=== PATIENT | female | born 2000 | race Caucasian/White ===

== ENCOUNTER 2024-08-12 02:37 | Emergency (ER) | payer OTHER, SELFPAY ==
[2024-08-12 02:39] VITALS: BP 127/85
[2024-08-12 03:09] VITALS: BMI 26.6
[2024-08-12] MEDS: DILAUDID 0.5 MG IV ×2 (03:10→03:53)
[2024-08-12] MEDS: ZOFRAN 4 MG IV (03:10)
[2024-08-12] MEDS: NSS 1000 IV (03:11)
--- NOTE | 2024-08-12 03:13 | ED.GENMED ---
History of Present Illness
General
Chief Complaint: Abdominal Pain
Source: patient
Exam Limitations: none
Time Seen by Provider: 08/12/24 02:40
Nursing documentation reviewed up to this point in time: agreed with
History of Present Illness
History of Present Illness:
pt is a 24 y/o F
no sig pmh
lmp last week, normal
here with sudden onset of LLQ pain that woke her from sleep
nausea and urge to urinate but hasn't been able to
some constipation the past few days as well
vaginal area feels like it is burning
no discharge, fever, chills, dysuria
pt has never had ovarian cyst or kidney stone
02/10 pain
dry heaving here, vomited x [address]
tried motrin and heating pad at home without relief
has never seen gyne
Past History
Past History
ED Past Medical History: None
ED Past Surgical History: None
Social History
Tobacco: Non-smoker
Alcohol: None
Drug: None
Review of Systems
Review of Systems
Allergies reviewed?: Yes
All Other Systems: Not applicable
Phy Exam
Physical Exam
Physical Exam:
GENERAL: Alert ,; pale, uncomfortable;
EYE: pupils equal and reactive
NECK: Supple
ENT: o/p clr, mmm.
CARDIAC: Regular rate and rhythm .
LUNGS: Clear breath sounds bilaterally, no acute respiratory distress, no wheezes/rales/rhonchi
ABDOMEN: Soft, without focal tenderness, no r/g, no cvat, normal bowel sounds
: normal ext inspection
normal speculum exam
nontender R ovary
L ovary mildly tender
no cmt
NEUROLOGICAL: Alert and oriented, no focal neuro deficits
SKIN: Warm and dry, skin intact. very pale
MUSCULOSKELETAL: No edema, well perfused. neg tylor's sign
PSYCH: Normal and appropriate interaction.
Course
Orders/Labs/Results
Orders:
Orders
08/12/24 03:01
Bladder Scan- Treatment ONCE
HYDROmorphone [Dilaudid] 0.5 mg IV NOW STA
Ondansetron Injectable [Zofran] 4 mg IV NOW STA
Test Result ONCE
Pelvis & Transvaginal US [US Pelvis W Transvag Combined] Urgent
Comment:
Reason For Exam: L sided pain, eval torsion
08/12/24 03:03
0.9% Sodium Chloride 1000 ml [Nss] 1,000 ml IV BOLUS
08/12/24 03:14
Complete Blood Count/With Diff Urgent
Comprehensive Metabolic Panel Urgent
HCG, Serum Qualitative Screen Urgent
08/12/24 03:51
HYDROmorphone [Dilaudid] 0.5 mg IV NOW STA
08/12/24 03:56
CT Abd/pel Without Iv Or Oral Urgent
Comment:
Reason For Exam: L sided pain, urge to urinate, nausea
Ketorolac [Toradol] 30 mg IV NOW STA
08/12/24 05:31
Tamsulosin [Flomax] 0.4 mg PO NOW STA
08/12/24 05:32
Urinalysis Reflex To Culture Urgent
Date Specimen was Collected: 08/12/24
Time Specimen was Collected: 05:31
Urine Microscopic Reflex Cult Urgent
Urine Culture Urgent
MURPHY Source: U
Specimen Description:
Date Specimen was Collected: 08/12/24
Time Specimen was Collected: 05:31
Abnormal Lab Results
08/12/24 08/12/24
03:14 05:32
Hct 34.5 L %
(37.0-47.0)
MCV 78.9 L fL
(81.0-99.0)
Lymphocytes % 18.6 L %
(20.5-51.1)
Glucose 130 H mg/dl
(70-99)
Urine Ketones 3+ A
(Negative)
Ur Occult Blood Reflex 1+ A
(Negative)
Leukocyte Esterase Rfl 1+ A
(Negative)
Urine RBC 7-10 A /HPF
(0-2)
Urine Bacteria (Reflex) Many A
(Negative)
Urine Albumin (Reflex) 1+ A
(Neg - Trace)
08/12/24 03:14
08/12/24 03:14
Vital Signs
Initial and Last Documented VS:
Initial Vital Signs
Temp Pulse Resp BP Pulse Ox
36.8 C 84 16 127/85 100
08/12/24 02:39 08/12/24 02:39 08/12/24 02:39 08/12/24 02:39 08/12/24 02:39
Last Documented Vital Signs
Temp Pulse Resp BP Pulse Ox
36.8 C 84 16 124/74 97
08/12/24 02:39 08/12/24 02:39 08/12/24 02:39 08/12/24 06:32 08/12/24 06:43
MDM/Problems Addressed
Differential Diagnosis Includes:
kidney stone, ovarian torsion
MDM/Problems Addressed:
24 y/o F abrupt onset LLQ pain tonight with sensation of needing to void and some burning or irriation in her vaginal region
nausea but no vomiting
pt extremely pale
flat affect
normotensive
nontender abdomen
? L pelvic tenderness
no cva tendneress
staying very still but not tender
made me think torsion more than stone
started with US which documented flow to the ovary, and sent for CT
ct shows 3 mm distal stone
Pain was controlled with IV pain medication and she remained pain-free
Given Flomax. UA appreciated with leuks, blood, many bacteria but also contaminated, doubt the patient has an infection but given the mild discomfort she had with urination I will cover her with cefdinir. Patient was feeling well on discharge.
Strainer given. Return precautions, urology follow-up
*Critical Care Note
Total Time (30-74mins, 75-104mins- exclusive of procedures): Not Applicable
ED Attending Note
-
Portions of this chart may have been created with voice recognition software.� Occasional wrong word or��sound alike� substitutions may have occurred due to the inherent limitations of voice recognition software.
Discharge Plan
Departure
Patient Disposition: Home (Routine Discharge)
Date of Disposition: 08/12/24
Time of Disposition: 06:34
Patient with high blood pressure during this ER visit?: No
Condition: Fair
Covid-19: Not Applicable
Discharge Problem:
Kidney stone
Instructions: Kidney Stones (DC)
Prescriptions:
New
tamsulosin [Flomax] 0.4 mg capsule
0.4 mg PO DAILY Qty: 10 0RF
ondansetron 4 mg tablet,disintegrating
4 mg PO TIDPRN PRN (Reason: nausea/vomiting) Qty: 6 0RF
oxycodone 5 mg tablet
5 mg PO Q8H PRN (Reason: Pain) Qty: 5 0RF
cefdinir 300 mg capsule
300 mg PO BID Qty: 10 0RF
Referrals:
Stacy Bonds DO [Family Provider] - Follow up in 2-3 days
Melecio Rosenberg MD [Active] - Follow up in 1 week (urology)
Activity Restrictions/Additional Instructions:
YOU HAVE A KIDNEY STONE 3 MM IN THE URETER JUST NEXT TO YOUR BLADDER.
TAKE FLOMAX 0.4 MG ONCE A DAY UNTIL YOU PASS THE STONE
URINATE THROUGH THE STRAINER EACH TIME YOU PEE
TAKE TYLENOL 2 EXTRA STRENGTH TABS 3 TIMES A DAY FOR PAIN
YOU CAN ALSO TRY MOTRIN 600 MG EVERY 8 HOURS WITH FOOD 2-3 TIMES A DAY NEEDED
IF PAIN IS SEVERE YOU CAN TRY OXYCODONE 5 MG EVERY 6 HOURS NEEDED, THIS IS A NARCOTIC AND YOU CANNOT DRIVE OR DRINK ON THIS MEDICATION.
ZOFRAN EVERY 8 HOURS NEEDED FOR NAUSEA/VOMITING
RETURN FOR: SEVERE PAIN, VOMITING, FEVER, NOT URINATING OR ANY CONCERNS.
OTHERWISE FOLLOW UP WITH YOUR UROLOGIST
Interventions
Interventions:
*Risk Screen - Suicide Last Done: 08/12/24 02:39
*General Assessment Last Done: 08/12/24 03:09
*Neglect/Abuse Screening Last Done: 08/12/24 03:09
*ED- Fall Risk Assessment Last Done: 08/12/24 03:09
*ED COVID-19 Vaccine History Last Done: 08/12/24 03:09
*Nursing Disposition Last Done: 08/12/24 06:43
[facility]-Wvzaoo-Dhyxrupdba Assessment Last Done: 08/12/24 03:09
Discharge Date and Time
Print Language: MACEDONIAN
[2024-08-12 03:17] VITALS: BP 115/78
[2024-08-12 03:28] LABS: % Basophils 0.5 % (0-2); % Eosinophils 0.4 % (0-6); % Immature Granulocytes 0.2 % (0-0.5); % Lymphocytes 18.6 % (20.5-51.1); % Monocytes 5.5 % (1.7-9.3); % Neutrophils 74.8 % (42.2-75.2); Absolute Lymphocytes 1.6 10^3/uL (1.2-3.4); Absolute Monocytes 0.5 10^3/uL (0.1-0.6); Absolute Neutrophils 6.3 10^3/uL (1.4-6.5); Hematocrit 34.5 % (37.0-47.0); Mean Corp Hgb Conc. 34.8 g/dL (33.0-37.0); Mean Corpuscular Hgb 27.5 pg (27.0-31.0); Mean Corpuscular Volume 78.9 fL (81.0-99.0); Mean Platelet Volume 9.5 fL (7.4-10.4); Nucleated Red Blood Cells % 0 %; Platelet Count 217 10^3/uL (130-400); Red Blood Cell Count 4.37 10^6/uL (4.20-5.40); Red Cell Dist. Width 12.9 % (11.5-14.5); White Blood Cell Count 8.4 10^3/uL (4.8-10.8)
[2024-08-12 03:43] LABS: HCG, Serum Qualitative Screen Negative
[2024-08-12 03:51] LABS: ALT (SGPT) 14 U/L (0-35); AST (SGOT) 20 U/L (14-36); Albumin 4.5 g/dl (3.5-5.0); Alkaline Phosphatase 68 U/L (38-126); Blood Urea Nitrogen 17 mg/dl (7-17); Calcium 9.4 mg/dl (8.4-10.2); Carbon Dioxide 25 mmol/L (22-30); Chloride 106 mmol/L (98-107); Estimated Creatinine Clearance 94 ml/min; Glucose 130 mg/dl (70-99); Potassium 3.5 mmol/L (3.5-5.1); Sodium 143 mmol/L (135-145); Total Bilirubin 0.6 mg/dl (0.2-1.3); Total Protein 7.4 g/dl (6.3-8.2); eGFR > 60.00
[2024-08-12 04:00] VITALS: BP 118/77
[2024-08-12] MEDS: TORADOL 30 MG IV (04:00)
[2024-08-12] MEDS: FLOMAX 0.4 MG PO (05:36)
[2024-08-12 05:49] LABS: Urine Albumin 1+ (Neg - Trace); Urine Bilirubin Negative (Negative); Urine Character Clear (Clear); Urine Color Yellow; Urine Glucose Negative (Negative); Urine Ketone 3+ (Negative); Urine Leukocyte 1+ (Negative); Urine Nitrite Negative (Negative); Urine Occult Blood 1+ (Negative); Urine Specific Gravity 1.025 (<1.030); Urine Urobilinogen Negative (Neg - 1+)
[2024-08-12 06:32] VITALS: BP 124/74
[2024-08-12 06:41] LABS: Urine Amorphous Seen; Urine Bacteria Many (Negative); Urine Mucus Many; Urine Squamous Cell >30 /LPF (Few)
== END 2024-08-12 06:51 | disposition home or self-care (01) ==
LOC: EMR 02:37
PROVIDERS: Physician Assistant; EMERGENCY PHYSICIAN Student in an Organized Health Care Education/Training Program; FAMILY PHYSICIAN Family Medicine
DX: N13.2 Hydronephrosis with renal and ureteral calculous obstruction (principal)
CPT/HCPCS: 99285; 96374; 96375 ×2; 96361; 51798; 96376; 74176; 76830; 76856; 80053; 81003; 81015; 84703; 85025; 87086